=== PATIENT | female | born 1965 | race Caucasian/White ===

== ENCOUNTER 2018-12-25 19:29 | Emergency (ER) | payer OTHER ==
[~2018-12-25] VITALS: Ht 170.2 cm; Wt 86.2 kg
[2018-12-25 19:32] VITALS: BP 132/77
--- NOTE | 2018-12-25 19:37 | NUR ---
PT AMBULATED TO BED 9.
[2018-12-25] MEDS ORDERED: DIAZEPAM 5 MG TAB PO ONE (20:05)
[2018-12-25] MEDS ORDERED: KETOROLAC 30 MG/ML VIAL IM ONE (20:05)
--- NOTE | 2018-12-25 20:07 | NUR ---
XRAY AT BEDSIDE.
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
[2018-12-25] MEDS ORDERED: MORPHINE SULFATE 4 MG/ML SYR IM ONE (21:35)
--- NOTE | 2018-12-25 22:30 | NUR ---
Patient discharged with v/s stable. Written and verbal after care instructions given and explained. Patient alert, oriented and verbalized understanding of instructions. Ambulatory with steady gait. All questions addressed prior to discharge. ID band removed. Patient advised to follow up with PMD. Rx of NAPROSYN, VALIUM given. Patient educated on indication of medication including possible reaction and side effects. Opportunity to ask questions provided and answered.
[2018-12-25 22:31] VITALS: BP 145/66
== END 2018-12-25 22:30 | disposition home or self-care (01) ==
LOC: MED 19:29
DX: S63.501A Unspecified sprain of right wrist, initial encounter (principal); S80.02XA Contusion of left knee, initial encounter; S80.01XA Contusion of right knee, initial encounter; M25.532 Pain in left wrist; W01.0XXA Fall on same level from slipping, tripping and stumbling without subsequent striking against object, initial encounter; Y93.89 Activity, other specified; Y92.512 Supermarket, store or market as the place of occurrence of the external cause; Y99.8 Other external cause status
CPT/HCPCS: 29125; 73110; 73562; 96372; 99283; J1885; J2270; Q0092